=== PATIENT | male | born 1955 | race Two or more races ===

== ENCOUNTER 2022-08-31 07:16 | Inpatient (IN) | payer MEDICARE, MEDICAID ==
[~2022-08-31] VITALS: Ht 172.7 cm; Wt 97.0 kg
[2022-08-31] MEDS ORDERED: ONDANSETRON HCL 4 MG/2 ML VIAL IV ONE (08:30)
[2022-08-31] MEDS ORDERED: HYDROmorphone HCL 2 MG/ML VL/or syr IV ONE (08:30)
[2022-08-31] MEDS ORDERED: ALBUTEROL SULF 2.5 MG/0.5ML(0.5%) NEB SOLN NEB ONE (13:30)
[2022-08-31] MEDS ORDERED: AZITHROMYCIN 500MG/ 250ML 250 ML IV ONE (13:30)
[2022-08-31] MEDS ORDERED: IPRATROPIUM BROM 0.5 MG/2.5ML INH SOL NEB ONE (13:30)
[2022-08-31] MEDS ORDERED: SODIUM CHLORIDE 0.9% 1,000 ML IV ONE (13:30)
[2022-08-31 14:17] LABS: Basophils # (auto) 0 10 ^3/uL (0-0.2); Basophils % (auto) 0.3 % (0.0-2.0); Eosinophils # (auto) 0 10 ^3/uL (0-0.8); Eosinophils % (auto) 0.3 % (0.0-7.0); Hematocrit 39.1 % (41.0-53.0); Hemoglobin 13.4 g/dL (13.5-17.5); Lymphocytes # (auto) 1.6 10 ^3/uL (0.4-5.4); Lymphocytes % (auto) 13.3 % (10.0-50.0); Mean Corpuscular Hemoglobin 30.3 pg (28.0-32.0); Mean Corpuscular Hgb Conc. 34.2 g/dL (32.0-36.0); Mean Corpuscular Volume 88.7 fL (80.0-100.0); Monocytes # (auto) 0.8 10 ^3/uL (0-1.3); Monocytes % (auto) 6.7 % (0.0-12.0); Neutrophils # (auto) 9.6 10 ^3/uL (1.6-8.6); Neutrophils % (auto) 79.4 % (37.0-80.0); Red Blood Cells 4.41 10^6/uL (4.5-5.90); Red Cell Distribution Width 13.5 % (11.8-14.3); White Blood Cell 12.1 10^3/uL (4.4-10.8)
[2022-08-31 14:45] LABS: Albumin 3.9 g/dL (3.4-5.0); BUN/Creatinine Ratio 15.5; Calcium 8.3 mg/dL (8.5-10.1); Magnesium 2.4 mg/dL (1.6-2.6); Total Protein 6.8 g/dL (6.4-8.2)
[2022-08-31 14:50] LABS: Urine Bacteria NONE SEEN /hpf (None Seen); Urine Blood Negative /uL (Negative); Urine WBC <1 /hpf (0 - 3)
[2022-08-31 14:59] LABS: Urine Specific Gravity > 1.050 (1.001-1.035)
[2022-08-31] MEDS ORDERED: NITROGLYCERIN 0.4 MG SL TAB SL PRN (15:45)
[2022-08-31] MEDS ORDERED: DEXTROSE (50%) 50ML SYRG IV PRN (15:45)
[2022-08-31] MEDS ORDERED: MORPHINE SULFATE INJ 2 MG/ml SYRG IV PRN (15:45)
[2022-08-31] MEDS ORDERED: CLOP75TA70 PO (15:58)
[2022-08-31] MEDS ORDERED: MEMA1TAB3 PO (15:58)
[2022-08-31] MEDS ORDERED: SITA100T7 PO (15:58)
[2022-08-31] MEDS ORDERED: ATOR40TA52 PO (15:58)
[2022-08-31] MEDS ORDERED: AMLO-496 PO (15:58)
[2022-08-31] MEDS ORDERED: METF-372 PO (15:58)
[2022-08-31] MEDS ORDERED: SERT-160 PO (15:58)
[2022-08-31] MEDS ORDERED: HYDR25TA87 PO (15:58)
[2022-08-31] MEDS ORDERED: LOSA-39 PO (15:58)
[2022-08-31] MEDS ORDERED: TAMS0.4C36 PO (15:59)
[2022-08-31] MEDS: MORPHINE SULFATE INJ 2 MG/ml SYRG IV PRN ×2 (16:27→20:42)
[2022-08-31] MEDS ORDERED: IOHEXOL 350 MG/ML 100ML IJ ONE (16:27)
[2022-08-31] MEDS ORDERED: cefTRIAXone 1GM/50ML D5W 50 ML IV ONE (16:30)
[2022-08-31] MEDS ORDERED: ALBUTEROL SULF 2.5 MG/0.5ML(0.5%) NEB SOLN NEB PRN (16:30)
[2022-08-31] MEDS ORDERED: FUROSEMIDE 20 MG/2 ML VIAL IV ONE (16:30)
[2022-08-31] MEDS: InsuLIN REG 1unit/0.01ml Soln (100units/ml) SC SCH ×2 (17:34→22:35)
[2022-08-31] MEDS: ACCU-CHEK COMFORT CURVE STRIP VI SCH ×2 (17:36→21:55)
[2022-08-31 17:37] LABS: Cholesterol 92 mg/dL (< 200); HDL Cholesterol 44 mg/dL (40-59); LDL Cholesterol 45 mg/dL (< 100); Triglycerides 87 mg/dL (< 150)
[2022-08-31] MEDS ORDERED: LIDOCAINE 2% JELLY 11ml (GLYDO) ONE (17:58)
[2022-08-31 19:35] VITALS: BP 147/68
[2022-08-31] MEDS: MEMANTINE HCL 5 MG TAB PO SCH (21:45)
[2022-08-31] MEDS: ATORVASTATIN 20 MG TAB PO SCH (21:45)
[2022-08-31] MEDS: HYDROcodone-ACET 5/325MG TAB PO PRN (21:46)
[2022-08-31] MEDS: hydrALAZINE HCL 25 MG TAB PO SCH (21:49)
[2022-08-31 22:35] VITALS: BP 156/65
[2022-08-31 23:22] VITALS: BP 156/65
[2022-09-01] VITALS (16 sets, daily range): BP systolic 130–188; BP diastolic 49–66
[2022-09-01] MEDS ORDERED: CLOP75TA28 PO (00:56)
[2022-09-01] MEDS ORDERED: HYDR12.56 PO (00:58)
[2022-09-01] MEDS: ACCU-CHEK COMFORT CURVE STRIP VI SCH ×4 (06:03→22:00)
[2022-09-01] MEDS: InsuLIN REG 1unit/0.01ml Soln (100units/ml) SC SCH ×4 (06:11→22:00)
[2022-09-01] MEDS: HYDROcodone-ACET 5/325MG TAB PO PRN (06:14)
[2022-09-01 06:34] LABS: Basophils # (auto) 0 10 ^3/uL (0-0.2); Basophils % (auto) 0.3 % (0.0-2.0); Eosinophils # (auto) 0 10 ^3/uL (0-0.8); Eosinophils % (auto) 0.2 % (0.0-7.0); Hematocrit 34.5 % (41.0-53.0); Hemoglobin 12.1 g/dL (13.5-17.5); Lymphocytes # (auto) 0.7 10 ^3/uL (0.4-5.4); Lymphocytes % (auto) 7.3 % (10.0-50.0); Mean Corpuscular Hemoglobin 30.7 pg (28.0-32.0); Mean Corpuscular Hgb Conc. 35.1 g/dL (32.0-36.0); Mean Corpuscular Volume 87.6 fL (80.0-100.0); Monocytes # (auto) 0.8 10 ^3/uL (0-1.3); Monocytes % (auto) 7.9 % (0.0-12.0); Neutrophils # (auto) 8.5 10 ^3/uL (1.6-8.6); Neutrophils % (auto) 84.3 % (37.0-80.0); Red Blood Cells 3.94 10^6/uL (4.5-5.90); Red Cell Distribution Width 13.4 % (11.8-14.3); White Blood Cell 10.1 10^3/uL (4.4-10.8)
[2022-09-01 07:07] LABS: BUN/Creatinine Ratio 21.3; Calcium 8.4 mg/dL (8.5-10.1); Potassium 4.5 mmol/L (3.5-5.1)
[2022-09-01] MEDS: cefTRIAXone 1GM/50ML D5W 50 ML IV SCH (09:33)
[2022-09-01] MEDS: hydrALAZINE HCL 25 MG TAB PO SCH ×3 (09:37→22:00)
[2022-09-01] MEDS: TAMSULOSIN HYDROCHLORIDE 0.4 MG CAP PO SCH (09:37)
[2022-09-01] MEDS: MEMANTINE HCL 5 MG TAB PO SCH ×2 (09:37→22:00)
[2022-09-01] MEDS: LOSARTAN POTASSIUM 50 MG TAB PO SCH (09:37)
[2022-09-01] MEDS: amLODIPine BESYLATE 5 MG TAB PO SCH (09:38)
[2022-09-01] MEDS: ENOXAPARIN SOD 40 MG/0.4 ML SYRINGE SC SCH (09:38)
[2022-09-01] MEDS: FUROSEMIDE 20 MG/2 ML VIAL IV SCH (09:38)
[2022-09-01] MEDS ORDERED: PATIENTS OWN MEDICATION (Sitagliptin Phosphate (Januvia) 1 TAB) PO SCH (10:00)
[2022-09-01] MEDS ORDERED: LIDOCAINE 5% TOPICAL PATCH TOP ONE (11:00)
[2022-09-01] MEDS: AZITHROMYCIN 500MG/ 250ML 250 ML IV SCH (11:39)
[2022-09-01] MEDS: hydrALAZINE HCL 20 MG/ML VL IV PRN (12:21)
[2022-09-01] MEDS: ALBUTEROL SULF 2.5 MG/0.5ML(0.5%) NEB SOLN NEB SCH ×2 (12:26→19:07)
[2022-09-01] MEDS: IPRATROPIUM BROM 0.5 MG/2.5ML INH SOL NEB SCH ×2 (12:26→19:07)
[2022-09-01] MEDS: MORPHINE SULFATE INJ 2 MG/ml SYRG IV PRN ×3 (12:50→22:12)
[2022-09-01] MEDS: ACETAMINOPHEN 325 MG TAB PO PRN (15:31)
[2022-09-01] MEDS: ATORVASTATIN 20 MG TAB PO SCH (22:00)
[2022-09-01] MEDS ORDERED: ETOMIDATE (2MG/ML) 20ML VIAL IV ONE (23:11)
[2022-09-01] MEDS ORDERED: SUCCINYLCHOLINE CHLORIDE 20 MG/ML 10ML VIAL IV ONE (23:11)
[2022-09-01] MEDS ORDERED: HYDROmorphone HCL 2 MG/ML VL/or syr ONE (23:34)
[2022-09-02] VITALS (43 sets, daily range): BP systolic 119–171; BP diastolic 36–70
[2022-09-02] MEDS ORDERED: HYDROmorphone HCL 2 MG/ML VL/or syr IV PRN ×2 (02:00→06:00)
[2022-09-02] MEDS ORDERED: LORazepam 2MG/ML-1ML VIAL IV ONE (02:00)
[2022-09-02] MEDS: MORPHINE SULFATE INJ 2 MG/ml SYRG IV PRN (02:36)
[2022-09-02] MEDS: ACETAMINOPHEN 325 MG TAB PO PRN (05:20)
[2022-09-02 05:42] LABS: Basophils # (auto) 0 10 ^3/uL (0-0.2); Basophils % (auto) 0.1 % (0.0-2.0); Eosinophils # (auto) 0 10 ^3/uL (0-0.8); Hematocrit 33.1 % (41.0-53.0); Hemoglobin 11.4 g/dL (13.5-17.5); Lymphocytes # (auto) 0.5 10 ^3/uL (0.4-5.4); Lymphocytes % (auto) 3.6 % (10.0-50.0); Mean Corpuscular Hemoglobin 30.5 pg (28.0-32.0); Mean Corpuscular Hgb Conc. 34.5 g/dL (32.0-36.0); Mean Corpuscular Volume 88.5 fL (80.0-100.0); Monocytes # (auto) 0.8 10 ^3/uL (0-1.3); Monocytes % (auto) 5.8 % (0.0-12.0); Neutrophils # (auto) 12.5 10 ^3/uL (1.6-8.6); Neutrophils % (auto) 90.5 % (37.0-80.0); Red Blood Cells 3.74 10^6/uL (4.5-5.90); Red Cell Distribution Width 13.4 % (11.8-14.3); White Blood Cell 13.8 10^3/uL (4.4-10.8)
[2022-09-02] MEDS: ALBUTEROL SULF 2.5 MG/0.5ML(0.5%) NEB SOLN NEB SCH ×3 (06:35→18:39)
[2022-09-02] MEDS: IPRATROPIUM BROM 0.5 MG/2.5ML INH SOL NEB SCH ×3 (06:35→18:39)
[2022-09-02 06:40] LABS: BUN/Creatinine Ratio 23.2; Calcium 8.7 mg/dL (8.5-10.1)
[2022-09-02] MEDS: InsuLIN REG 1unit/0.01ml Soln (100units/ml) SC SCH ×4 (07:00→22:00)
[2022-09-02] MEDS: ACCU-CHEK COMFORT CURVE STRIP VI SCH ×4 (07:00→22:00)
[2022-09-02] MEDS: cefTRIAXone 1GM/50ML D5W 50 ML IV SCH (08:55)
[2022-09-02] MEDS: ENOXAPARIN SOD 40 MG/0.4 ML SYRINGE SC SCH (09:42)
[2022-09-02] MEDS: AZITHROMYCIN 500MG/ 250ML 250 ML IV SCH (09:43)
[2022-09-02] MEDS: LIDOCAINE 5% TOPICAL PATCH TOP SCH (09:43)
[2022-09-02] MEDS: FUROSEMIDE 20 MG/2 ML VIAL IV SCH (09:44)
[2022-09-02] MEDS: amLODIPine BESYLATE 5 MG TAB PO SCH ×2 (09:46→10:00)
[2022-09-02] MEDS: MEMANTINE HCL 5 MG TAB PO SCH (09:46)
[2022-09-02] MEDS: TAMSULOSIN HYDROCHLORIDE 0.4 MG CAP PO SCH (09:46)
[2022-09-02] MEDS: LOSARTAN POTASSIUM 50 MG TAB PO SCH ×2 (09:47→10:00)
[2022-09-02] MEDS: hydrALAZINE HCL 25 MG TAB PO SCH (10:00)
[2022-09-02] MEDS ORDERED: PIPERACILLIN-TAZOB 3.375GM 100 ML IV ONE (12:00)
[2022-09-02] MEDS: HYDROmorphone HCL 2 MG/ML VL/or syr IV PRN (20:05)
[2022-09-02] MEDS: PIPERACILLIN-TAZOB 3.375GM 100 ML IV SCH (20:16)
[2022-09-03] VITALS (49 sets, daily range): BP systolic 102–178; BP diastolic 0–71
[2022-09-03] MEDS: HYDROmorphone HCL 2 MG/ML VL/or syr IV PRN ×3 (00:40→11:38)
[2022-09-03 01:38] LABS: Urine Bacteria NONE SEEN /hpf (None Seen); Urine Blood 3+ /uL (Negative); Urine Specific Gravity 1.031 (1.001-1.035); Urine WBC 40 /hpf (0 - 3); Urine WBC Clumps PRESENT /hpf (None Seen)
[2022-09-03] MEDS: PIPERACILLIN-TAZOB 3.375GM 100 ML IV SCH ×3 (05:00→20:31)
[2022-09-03 05:12] LABS: Basophils # (auto) 0 10 ^3/uL (0-0.2); Basophils % (auto) 0.1 % (0.0-2.0); Eosinophils # (auto) 0 10 ^3/uL (0-0.8); Eosinophils % (auto) 0.1 % (0.0-7.0); Hematocrit 32.6 % (41.0-53.0); Hemoglobin 11.2 g/dL (13.5-17.5); Lymphocytes # (auto) 0.5 10 ^3/uL (0.4-5.4); Lymphocytes % (auto) 4.3 % (10.0-50.0); Mean Corpuscular Hemoglobin 30.4 pg (28.0-32.0); Mean Corpuscular Hgb Conc. 34.4 g/dL (32.0-36.0); Mean Corpuscular Volume 88.4 fL (80.0-100.0); Monocytes # (auto) 0.7 10 ^3/uL (0-1.3); Monocytes % (auto) 6.1 % (0.0-12.0); Neutrophils # (auto) 10.9 10 ^3/uL (1.6-8.6); Neutrophils % (auto) 89.4 % (37.0-80.0); Red Blood Cells 3.69 10^6/uL (4.5-5.90); Red Cell Distribution Width 13.3 % (11.8-14.3); White Blood Cell 12.2 10^3/uL (4.4-10.8)
[2022-09-03 05:36] LABS: Potassium 4.1 mmol/L (3.5-5.1)
[2022-09-03 05:37] LABS: Albumin 2.6 g/dL (3.4-5.0); BUN/Creatinine Ratio 30.8; Calcium 8.8 mg/dL (8.5-10.1)
[2022-09-03 05:40] LABS: Bilirubin, Total 0.8 mg/dL (0.2-1.0); Total Protein 5.9 g/dL (6.4-8.2)
[2022-09-03] MEDS: ALBUTEROL SULF 2.5 MG/0.5ML(0.5%) NEB SOLN NEB SCH ×3 (05:56→20:12)
[2022-09-03] MEDS: IPRATROPIUM BROM 0.5 MG/2.5ML INH SOL NEB SCH ×3 (05:56→20:12)
[2022-09-03] MEDS: ACCU-CHEK COMFORT CURVE STRIP VI SCH ×4 (07:00→22:29)
[2022-09-03] MEDS: InsuLIN REG 1unit/0.01ml Soln (100units/ml) SC SCH ×4 (07:00→22:00)
[2022-09-03] MEDS: LIDOCAINE 5% TOPICAL PATCH TOP SCH (09:55)
[2022-09-03] MEDS: FUROSEMIDE 20 MG/2 ML VIAL IV SCH (09:56)
[2022-09-03] MEDS: ENOXAPARIN SOD 40 MG/0.4 ML SYRINGE SC SCH (09:56)
[2022-09-03] MEDS: MORPHINE SULFATE INJ 2 MG/ml SYRG IV PRN (10:10)
[2022-09-03] MEDS ORDERED: FUROSEMIDE 40 MG/4 ML VIAL ONE (10:29)
[2022-09-03] MEDS ORDERED: FUROSEMIDE 40 MG/4 ML VIAL IV ONE (10:30)
[2022-09-03] MEDS ORDERED: NITROGLYCERIN 2% OINT 1GM PKG TD ONE (11:30)
[2022-09-03] MEDS ORDERED: BUMETANIDE 2.5mg/10ml (0.25 mg/ml) INJ IV ONE (14:15)
[2022-09-03] MEDS ORDERED: VANCOMYCIN PER PHARMACY 0 MG IV SCH (14:30)
[2022-09-03] MEDS ORDERED: ETOMIDATE (2MG/ML) 20ML VIAL IV ONE ×2 (15:01→15:15)
[2022-09-03] MEDS ORDERED: PROPOFOL 100 ML IV ONE (15:01)
[2022-09-03] MEDS ORDERED: ROCURONIUM 10MG/ML 10ML VIAL IV ONE ×2 (15:01→15:15)
[2022-09-03] MEDS ORDERED: fentaNYL Drip 2500mCg/250mlNS 250 ML IV ONE (15:01)
[2022-09-03] MEDS ORDERED: PANTOPRAZOLE 40 MG/10 ML VIAL INJ IV ONE (15:30)
[2022-09-03] MEDS: MIDAZOLAM DRIP 50 mg/50mL 50 ML IV SCH (15:30)
[2022-09-03] MEDS: PROPOFOL 100 ML IV SCH (15:53)
[2022-09-03] MEDS: fentaNYL Drip 2500mCg/250mlNS 250 ML IV SCH (15:54)
[2022-09-03 17:41] LABS: BUN/Creatinine Ratio 31.4; Calcium 9.1 mg/dL (8.5-10.1); Potassium 3.5 mmol/L (3.5-5.1)
[2022-09-03] MEDS: VANCOMYCIN 1GM/250ML 250 ML IV SCH (19:18)
[2022-09-03] MEDS: SODIUM CHLORIDE 0.9% 1,000 ML IV SCH (19:21)
[2022-09-03 20:18] LABS: INR 1.03 (0.9-1.15); Partial Thromboplastin Time 31.4 sec (24.6-33.4)
[2022-09-03] MEDS ORDERED: FUROSEMIDE 20 MG/2 ML VIAL IV SCH (22:00)
[2022-09-04] VITALS (57 sets, daily range): BP systolic 86–161; BP diastolic 42–69
[2022-09-04] MEDS: ALBUTEROL SULF 2.5 MG/0.5ML(0.5%) NEB SOLN NEB SCH ×4 (00:19→19:16)
[2022-09-04] MEDS: IPRATROPIUM BROM 0.5 MG/2.5ML INH SOL NEB SCH ×4 (00:19→19:16)
[2022-09-04] MEDS: PROPOFOL 100 ML IV SCH ×2 (00:36→16:08)
[2022-09-04] MEDS: VANCOMYCIN 1GM/250ML 250 ML IV SCH ×3 (04:05→21:44)
[2022-09-04] MEDS: PIPERACILLIN-TAZOB 3.375GM 100 ML IV SCH (04:05)
[2022-09-04] MEDS: ACCU-CHEK COMFORT CURVE STRIP VI SCH ×4 (06:30→21:49)
[2022-09-04] MEDS: InsuLIN REG 1unit/0.01ml Soln (100units/ml) SC SCH ×4 (06:45→21:54)
[2022-09-04] MEDS ORDERED: BENZOCAINE (DENTAL) 20 % SPRAY 60ML MT ONE (07:44)
[2022-09-04] MEDS ORDERED: EPINEPHrine HCL 1 MG/1 ML AMP ONE (07:44)
[2022-09-04] MEDS ORDERED: MIDAZOLAM HCL 5 MG/ML-1ML VIAL ONE (07:44)
[2022-09-04] MEDS ORDERED: fentaNYL CITRATE 100 MCG/2 ML VL ONE (07:45)
[2022-09-04] MEDS ORDERED: LIDOCAINE 2% JELLY 11ml (GLYDO) ONE (07:45)
[2022-09-04] MEDS ORDERED: SODIUM CHLORIDE LOCK 0 ML ONE (07:46)
[2022-09-04 08:00] LABS: BUN/Creatinine Ratio 36.6; Calcium 8.7 mg/dL (8.5-10.1); Magnesium 2.7 mg/dL (1.6-2.6); Potassium 3.6 mmol/L (3.5-5.1)
[2022-09-04] MEDS ORDERED: ACETYLCYSTEINE 20%(200MG/ML) SOL 4ML ONE (08:03)
[2022-09-04] MEDS ORDERED: ACETYLCYSTEINE 20%(200MG/ML) SOL 4ML NEB ONE (08:15)
[2022-09-04] MEDS: SODIUM CHLORIDE 0.9% 1,000 ML IV SCH (10:10)
[2022-09-04] MEDS: PANTOPRAZOLE 40 MG/10 ML VIAL INJ IV SCH (11:04)
[2022-09-04] MEDS: ENOXAPARIN SOD 40 MG/0.4 ML SYRINGE SC SCH (11:05)
[2022-09-04] MEDS ORDERED: CEFEPIME 2 GM in SODIUM CHL 0.9% 50 ML IV SCH (12:00)
[2022-09-04] MEDS: fentaNYL Drip 2500mCg/250mlNS 250 ML IV SCH (12:53)
[2022-09-04] MEDS ORDERED: LIDOCAINE 1% (LOCAL ANESTH.) PF 5ml SDV ID ONE (14:00)
[2022-09-04] MEDS: MIDAZOLAM DRIP 50 mg/50mL 50 ML IV SCH (15:30)
[2022-09-04] MEDS: ACETAMINOPHEN 325 MG TAB PO PRN (17:11)
[2022-09-04] MEDS: CEFEPIME 2 GM in SODIUM CHL 0.9% 50 ML IV SCH (17:15)
[2022-09-04] MEDS: SODIUM CHLOR 0.9% PF (SALINE LOCK) 10ML VIAL/SYR IV SCH (21:44)
[2022-09-05] VITALS (57 sets, daily range): BP systolic 89–130; BP diastolic 34–79
[2022-09-05] MEDS: IPRATROPIUM BROM 0.5 MG/2.5ML INH SOL NEB SCH ×4 (00:13→18:32)
[2022-09-05] MEDS: ALBUTEROL SULF 2.5 MG/0.5ML(0.5%) NEB SOLN NEB SCH ×4 (00:13→18:32)
[2022-09-05] MEDS: fentaNYL Drip 2500mCg/250mlNS 250 ML IV SCH ×2 (00:20→12:08)
[2022-09-05] MEDS: CEFEPIME 2 GM in SODIUM CHL 0.9% 50 ML IV SCH ×3 (00:38→17:01)
[2022-09-05] MEDS: SODIUM CHLORIDE 0.9% 1,000 ML IV SCH ×2 (02:50→19:30)
[2022-09-05 04:58] LABS: Basophils # (auto) 0 10 ^3/uL (0-0.2); Basophils % (auto) 0.3 % (0.0-2.0); Eosinophils # (auto) 0.2 10 ^3/uL (0-0.8); Eosinophils % (auto) 2.8 % (0.0-7.0); Hematocrit 29.2 % (41.0-53.0); Hemoglobin 9.9 g/dL (13.5-17.5); Lymphocytes # (auto) 0.8 10 ^3/uL (0.4-5.4); Lymphocytes % (auto) 10.2 % (10.0-50.0); Mean Corpuscular Hemoglobin 30.6 pg (28.0-32.0); Mean Corpuscular Hgb Conc. 33.9 g/dL (32.0-36.0); Mean Corpuscular Volume 90.4 fL (80.0-100.0); Monocytes # (auto) 0.6 10 ^3/uL (0-1.3); Monocytes % (auto) 8.1 % (0.0-12.0); Neutrophils # (auto) 6.2 10 ^3/uL (1.6-8.6); Neutrophils % (auto) 78.6 % (37.0-80.0); Red Blood Cells 3.23 10^6/uL (4.5-5.90); Red Cell Distribution Width 13.8 % (11.8-14.3); White Blood Cell 7.9 10^3/uL (4.4-10.8)
[2022-09-05 05:15] LABS: Albumin 2.4 g/dL (3.4-5.0); Calcium 8.4 mg/dL (8.5-10.1); Potassium 3.6 mmol/L (3.5-5.1)
[2022-09-05 05:19] LABS: BUN/Creatinine Ratio 40.2; Bilirubin, Total 1.3 mg/dL (0.2-1.0); Total Protein 5.9 g/dL (6.4-8.2)
[2022-09-05] MEDS: PROPOFOL 100 ML IV SCH ×2 (05:24→11:52)
[2022-09-05] MEDS: ACCU-CHEK COMFORT CURVE STRIP VI SCH ×4 (06:39→21:52)
[2022-09-05] MEDS: InsuLIN REG 1unit/0.01ml Soln (100units/ml) SC SCH ×4 (06:42→21:52)
[2022-09-05] MEDS: SODIUM CHLOR 0.9% PF (SALINE LOCK) 10ML VIAL/SYR IV SCH ×2 (10:00→21:52)
[2022-09-05] MEDS ORDERED: Glucerna 1.2 Cal 1Liter BOTTLE GT SCH (11:15)
[2022-09-05] MEDS: ENOXAPARIN SOD 40 MG/0.4 ML SYRINGE SC SCH (11:52)
[2022-09-05] MEDS: FREE WATER GT SCH ×3 (11:53→23:35)
[2022-09-05] MEDS: PANTOPRAZOLE 40 MG/10 ML VIAL INJ IV SCH (11:53)
[2022-09-05] MEDS: MIDAZOLAM DRIP 50 mg/50mL 50 ML IV SCH (15:16)
[2022-09-05] MEDS: LINEZOLID 600MG/300ML 300 ML IV SCH (21:52)
[2022-09-06] VITALS (58 sets, daily range): BP systolic 111–129; BP diastolic 39–51
[2022-09-06] MEDS: ALBUTEROL SULF 2.5 MG/0.5ML(0.5%) NEB SOLN NEB SCH ×4 (00:01→18:15)
[2022-09-06] MEDS: IPRATROPIUM BROM 0.5 MG/2.5ML INH SOL NEB SCH ×4 (00:01→18:15)
[2022-09-06] MEDS: fentaNYL Drip 2500mCg/250mlNS 250 ML IV SCH ×2 (01:00→12:52)
[2022-09-06] MEDS: CEFEPIME 2 GM in SODIUM CHL 0.9% 50 ML IV SCH ×3 (01:00→17:00)
[2022-09-06] MEDS: PROPOFOL 100 ML IV SCH (01:11)
[2022-09-06 04:02] LABS: Basophils # (auto) 0 10 ^3/uL (0-0.2); Basophils % (auto) 0.4 % (0.0-2.0); Eosinophils # (auto) 0.4 10 ^3/uL (0-0.8); Eosinophils % (auto) 5.5 % (0.0-7.0); Hematocrit 28.8 % (41.0-53.0); Hemoglobin 9.3 g/dL (13.5-17.5); Lymphocytes # (auto) 0.7 10 ^3/uL (0.4-5.4); Lymphocytes % (auto) 9.8 % (10.0-50.0); Mean Corpuscular Hemoglobin 29.7 pg (28.0-32.0); Mean Corpuscular Hgb Conc. 32.5 g/dL (32.0-36.0); Mean Corpuscular Volume 91.3 fL (80.0-100.0); Monocytes # (auto) 0.7 10 ^3/uL (0-1.3); Monocytes % (auto) 8.8 % (0.0-12.0); Neutrophils # (auto) 5.7 10 ^3/uL (1.6-8.6); Neutrophils % (auto) 75.5 % (37.0-80.0); Red Blood Cells 3.15 10^6/uL (4.5-5.90); Red Cell Distribution Width 13.8 % (11.8-14.3); White Blood Cell 7.5 10^3/uL (4.4-10.8)
[2022-09-06 04:14] LABS: Potassium 3.7 mmol/L (3.5-5.1)
[2022-09-06 04:16] LABS: BUN/Creatinine Ratio 45.6; Bilirubin, Total 1.7 mg/dL (0.2-1.0); Total Protein 6.4 g/dL (6.4-8.2)
[2022-09-06] MEDS: FREE WATER GT SCH ×3 (06:00→18:00)
[2022-09-06] MEDS: InsuLIN REG 1unit/0.01ml Soln (100units/ml) SC SCH ×4 (06:38→21:47)
[2022-09-06] MEDS: ACCU-CHEK COMFORT CURVE STRIP VI SCH ×4 (06:39→21:49)
[2022-09-06] MEDS: ENOXAPARIN SOD 40 MG/0.4 ML SYRINGE SC SCH (09:24)
[2022-09-06] MEDS: PANTOPRAZOLE 40 MG/10 ML VIAL INJ IV SCH (09:24)
[2022-09-06] MEDS: SODIUM CHLOR 0.9% PF (SALINE LOCK) 10ML VIAL/SYR IV SCH ×2 (09:24→21:42)
[2022-09-06] MEDS: LINEZOLID 600MG/300ML 300 ML IV SCH ×2 (09:24→21:42)
[2022-09-06] MEDS: SODIUM CHLORIDE 0.9% 1,000 ML IV SCH (12:12)
[2022-09-06] MEDS: MIDAZOLAM DRIP 50 mg/50mL 50 ML IV SCH (15:30)
[2022-09-07] VITALS (66 sets, daily range): BP systolic 102–169; BP diastolic 34–56
[2022-09-07] MEDS: ALBUTEROL SULF 2.5 MG/0.5ML(0.5%) NEB SOLN NEB SCH ×4 (00:22→20:09)
[2022-09-07] MEDS: IPRATROPIUM BROM 0.5 MG/2.5ML INH SOL NEB SCH ×4 (00:23→20:09)
[2022-09-07] MEDS: CEFEPIME 2 GM in SODIUM CHL 0.9% 50 ML IV SCH ×3 (01:00→17:00)
[2022-09-07] MEDS: fentaNYL Drip 2500mCg/250mlNS 250 ML IV SCH ×2 (03:30→15:17)
[2022-09-07] MEDS: SODIUM CHLORIDE 0.9% 1,000 ML IV SCH ×2 (04:50→21:30)
[2022-09-07] MEDS: FREE WATER GT SCH ×4 (06:00→18:00)
[2022-09-07] MEDS: InsuLIN REG 1unit/0.01ml Soln (100units/ml) SC SCH ×4 (06:48→22:00)
[2022-09-07] MEDS: ACCU-CHEK COMFORT CURVE STRIP VI SCH ×4 (06:48→22:00)
[2022-09-07 08:18] LABS: Basophils # (auto) 0 10 ^3/uL (0-0.2); Basophils % (auto) 0.4 % (0.0-2.0); Eosinophils # (auto) 0.4 10 ^3/uL (0-0.8); Eosinophils % (auto) 5.5 % (0.0-7.0); Hemoglobin 9.4 g/dL (13.5-17.5); Lymphocytes # (auto) 0.6 10 ^3/uL (0.4-5.4); Lymphocytes % (auto) 7.7 % (10.0-50.0); Mean Corpuscular Hemoglobin 30.2 pg (28.0-32.0); Mean Corpuscular Hgb Conc. 33.5 g/dL (32.0-36.0); Mean Corpuscular Volume 89.9 fL (80.0-100.0); Monocytes # (auto) 0.7 10 ^3/uL (0-1.3); Monocytes % (auto) 8.7 % (0.0-12.0); Neutrophils # (auto) 6.1 10 ^3/uL (1.6-8.6); Neutrophils % (auto) 77.7 % (37.0-80.0); Nucleated Red Blood Cells % 0.1 %; Red Blood Cells 3.11 10^6/uL (4.5-5.90); Red Cell Distribution Width 13.5 % (11.8-14.3); White Blood Cell 7.9 10^3/uL (4.4-10.8)
[2022-09-07 08:32] LABS: Calcium 9.2 mg/dL (8.5-10.1); Potassium 3.7 mmol/L (3.5-5.1)
[2022-09-07 08:34] LABS: BUN/Creatinine Ratio 50.3
[2022-09-07] MEDS: SODIUM CHLOR 0.9% PF (SALINE LOCK) 10ML VIAL/SYR IV SCH ×2 (10:00→22:00)
[2022-09-07] MEDS: ENOXAPARIN SOD 40 MG/0.4 ML SYRINGE SC SCH (10:33)
[2022-09-07] MEDS: PANTOPRAZOLE 40 MG/10 ML VIAL INJ IV SCH (10:33)
[2022-09-07] MEDS: LINEZOLID 600MG/300ML 300 ML IV SCH ×2 (10:33→22:07)
[2022-09-07] MEDS: DOPamine 1600MCG/ML D5W 250 ML IV SCH (13:00)
[2022-09-07] MEDS: PROPOFOL 100 ML IV SCH (15:15)
[2022-09-07] MEDS: MIDAZOLAM DRIP 50 mg/50mL 50 ML IV SCH (15:30)
[2022-09-07] MEDS ORDERED: METOCLOPRAMIDE HCL 5MG/ml INJ 2ml VIAL IV ONE (22:00)
[2022-09-07] MEDS: METOCLOPRAMIDE HCL 5MG/ml INJ 2ml VIAL IV SCH (22:07)
[2022-09-08] VITALS (107 sets, daily range): BP systolic 112–170; BP diastolic 42–61
[2022-09-08] MEDS: ALBUTEROL SULF 2.5 MG/0.5ML(0.5%) NEB SOLN NEB SCH ×4 (00:13→18:22)
[2022-09-08] MEDS: IPRATROPIUM BROM 0.5 MG/2.5ML INH SOL NEB SCH ×4 (00:13→18:23)
[2022-09-08] MEDS: PROPOFOL 100 ML IV SCH ×3 (00:30→13:20)
[2022-09-08] MEDS: CEFEPIME 2 GM in SODIUM CHL 0.9% 50 ML IV SCH ×3 (01:00→21:38)
[2022-09-08] MEDS: fentaNYL Drip 2500mCg/250mlNS 250 ML IV SCH ×2 (05:14→19:04)
[2022-09-08] MEDS: FREE WATER GT SCH ×2 (06:00)
[2022-09-08] MEDS: InsuLIN REG 1unit/0.01ml Soln (100units/ml) SC SCH ×4 (06:37→22:00)
[2022-09-08] MEDS: ACCU-CHEK COMFORT CURVE STRIP VI SCH ×4 (06:38→22:00)
[2022-09-08 07:01] LABS: Anion Gap 8 (5-15); Blood Urea Nitrogen 68 mg/dL (7-18); Calcium 8.6 mg/dL (8.5-10.1); Carbon Dioxide 22 mmol/L (21-32); Chloride 107 mmol/L (98-107); Glucose 264 mg/dL (74-106); Potassium 3.8 mmol/L (3.5-5.1); Sodium 137 mmol/L (136-145)
[2022-09-08 07:02] LABS: BUN/Creatinine Ratio 48.9; GFR African American 66 mL/min; GFR Non-African American 54 mL/min
[2022-09-08] MEDS: SODIUM CHLORIDE 0.9% 1,000 ML IV SCH (08:28)
[2022-09-08] MEDS: PANTOPRAZOLE 40 MG/10 ML VIAL INJ IV SCH (10:21)
[2022-09-08] MEDS: METOCLOPRAMIDE HCL 5MG/ml INJ 2ml VIAL IV SCH ×3 (10:21→21:38)
[2022-09-08] MEDS: LINEZOLID 600MG/300ML 300 ML IV SCH ×2 (10:21→21:37)
[2022-09-08] MEDS: ENOXAPARIN SOD 40 MG/0.4 ML SYRINGE SC SCH (10:21)
[2022-09-08] MEDS: SODIUM CHLOR 0.9% PF (SALINE LOCK) 10ML VIAL/SYR IV SCH ×2 (10:29→21:38)
[2022-09-08] MEDS ORDERED: FUROSEMIDE 40 MG/4 ML VIAL IV SCH (10:30)
[2022-09-08] MEDS ORDERED: LACTULOSE 20Gm/30ML SOLN PO ONE (13:00)
[2022-09-08] MEDS: hydrALAZINE HCL 20 MG/ML VL IV PRN ×2 (13:07→23:10)
[2022-09-08] MEDS: DOPamine 1600MCG/ML D5W 250 ML IV SCH (13:07)
[2022-09-08 14:01] LABS: Protein, Urine 84.9 mg/dL (0.0-11.9)
[2022-09-08] MEDS: MIDAZOLAM DRIP 50 mg/50mL 50 ML IV SCH (15:30)
[2022-09-08 17:20] LABS: Protein, Urine 104.8 mg/dL (0.0-11.9)
[2022-09-08] MEDS: LACTULOSE 20Gm/30ML SOLN PO SCH (17:47)
[2022-09-08 21:14] LABS: Urine Amorphous Crystal FEW /hpf (None Seen); Urine Bacteria FEW /hpf (None Seen); Urine Blood 3+ /uL (Negative); Urine Mucus FEW (None Seen); Urine Specific Gravity 1.017 (1.001-1.035); Urine WBC 41 /hpf (0 - 3)
[2022-09-09] VITALS (103 sets, daily range): BP systolic 112–168; BP diastolic 31–103
[2022-09-09] MEDS: LACTULOSE 20Gm/30ML SOLN PO SCH ×4 (01:11→17:56)
[2022-09-09 04:06] LABS: Albumin 1.9 g/dL (3.4-5.0); BUN/Creatinine Ratio 45.1; Calcium 8.8 mg/dL (8.5-10.1)
[2022-09-09 04:09] LABS: Bilirubin, Total 1.1 mg/dL (0.2-1.0); Total Protein 6.4 g/dL (6.4-8.2)
[2022-09-09 04:18] LABS: Hemoglobin 10.3 g/dL (13.5-17.5); Mean Corpuscular Hemoglobin 30.2 pg (28.0-32.0); Mean Corpuscular Hgb Conc. 34.2 g/dL (32.0-36.0); Mean Corpuscular Volume 88.3 fL (80.0-100.0); Red Blood Cells 3.39 10^6/uL (4.5-5.90); Red Cell Distribution Width 13.4 % (11.8-14.3)
[2022-09-09 04:27] LABS: Basophils % (manual) 0 (0.0-2.0); Blast Cells 0; Promyelocytes % 0; Reactive Lymphocytes 0
[2022-09-09] MEDS: METOCLOPRAMIDE HCL 5MG/ml INJ 2ml VIAL IV SCH ×3 (06:00→22:00)
[2022-09-09] MEDS: CEFEPIME 2 GM in SODIUM CHL 0.9% 50 ML IV SCH ×3 (06:00→22:00)
[2022-09-09] MEDS: ALBUTEROL SULF 2.5 MG/0.5ML(0.5%) NEB SOLN NEB SCH ×4 (06:35→18:38)
[2022-09-09] MEDS: IPRATROPIUM BROM 0.5 MG/2.5ML INH SOL NEB SCH ×4 (06:35→18:38)
[2022-09-09] MEDS: InsuLIN REG 1unit/0.01ml Soln (100units/ml) SC SCH ×4 (06:47→22:00)
[2022-09-09] MEDS: SODIUM CHLORIDE 0.9% 1,000 ML IV SCH (06:47)
[2022-09-09] MEDS: ACCU-CHEK COMFORT CURVE STRIP VI SCH ×4 (06:57→22:00)
[2022-09-09] MEDS: PROPOFOL 100 ML IV SCH ×4 (08:42→23:50)
[2022-09-09] MEDS: LINEZOLID 600MG/300ML 300 ML IV SCH ×2 (10:21→22:00)
[2022-09-09] MEDS: ENOXAPARIN SOD 40 MG/0.4 ML SYRINGE SC SCH (10:21)
[2022-09-09] MEDS: PANTOPRAZOLE 40 MG/10 ML VIAL INJ IV SCH (10:22)
[2022-09-09] MEDS: SODIUM CHLOR 0.9% PF (SALINE LOCK) 10ML VIAL/SYR IV SCH ×2 (10:22→22:00)
[2022-09-09 10:43] LABS: Band Neutrophils % (manual) 6; Eosinophils % (manual) 6 (0-7); Lymphocytes % (manual) 12 (10.0-50.0); Metamyelocytes % 2; Monocytes % (manual) 9 (0-12); Myelocytes % 1
[2022-09-09] MEDS: DOPamine 1600MCG/ML D5W 250 ML IV SCH (12:56)
[2022-09-09] MEDS: MIDAZOLAM DRIP 50 mg/50mL 50 ML IV SCH (15:30)
[2022-09-09] MEDS: hydrALAZINE HCL 20 MG/ML VL IV PRN (23:49)
[2022-09-10] VITALS (106 sets, daily range): BP systolic 125–182; BP diastolic 40–115
[2022-09-10] MEDS: LACTULOSE 20Gm/30ML SOLN PO SCH ×4 (00:12→18:00)
[2022-09-10] MEDS: IPRATROPIUM BROM 0.5 MG/2.5ML INH SOL NEB SCH ×4 (00:30→18:23)
[2022-09-10] MEDS: ALBUTEROL SULF 2.5 MG/0.5ML(0.5%) NEB SOLN NEB SCH ×4 (00:30→18:24)
[2022-09-10] MEDS: PROPOFOL 100 ML IV SCH ×2 (04:10→08:32)
[2022-09-10 05:15] LABS: Calcium 8.9 mg/dL (8.5-10.1)
[2022-09-10 05:17] LABS: BUN/Creatinine Ratio 40.8
[2022-09-10 05:30] LABS: Bilirubin, Total 1.1 mg/dL (0.2-1.0); Phosphorus 2.3 mg/dL (2.5-4.90); Total Protein 6.3 g/dL (6.4-8.2)
[2022-09-10] MEDS: CEFEPIME 2 GM in SODIUM CHL 0.9% 50 ML IV SCH ×2 (05:30→15:15)
[2022-09-10] MEDS: METOCLOPRAMIDE HCL 5MG/ml INJ 2ml VIAL IV SCH ×3 (05:30→21:42)
[2022-09-10] MEDS: InsuLIN REG 1unit/0.01ml Soln (100units/ml) SC SCH ×4 (06:30→22:04)
[2022-09-10] MEDS: ACCU-CHEK COMFORT CURVE STRIP VI SCH ×4 (06:33→21:43)
[2022-09-10] MEDS: SODIUM CHLOR 0.9% PF (SALINE LOCK) 10ML VIAL/SYR IV SCH ×2 (08:06→21:42)
[2022-09-10] MEDS: ENOXAPARIN SOD 40 MG/0.4 ML SYRINGE SC SCH (08:31)
[2022-09-10] MEDS: PANTOPRAZOLE 40 MG/10 ML VIAL INJ IV SCH (08:31)
[2022-09-10] MEDS: fentaNYL Drip 2500mCg/250mlNS 250 ML IV SCH (08:48)
[2022-09-10] MEDS: LINEZOLID 600MG/300ML 300 ML IV SCH ×2 (08:48→21:42)
[2022-09-10] MEDS ORDERED: FUROSEMIDE 40 MG/4 ML VIAL IV ONE (10:30)
[2022-09-10] MEDS: MIDAZOLAM DRIP 50 mg/50mL 50 ML IV SCH (13:28)
[2022-09-10] MEDS: DOPamine 1600MCG/ML D5W 250 ML IV SCH (22:03)
[2022-09-10] MEDS: hydrALAZINE HCL 20 MG/ML VL IV PRN (22:40)
[2022-09-11] VITALS (98 sets, daily range): BP systolic 135–202; BP diastolic 49–84
[2022-09-11] MEDS: IPRATROPIUM BROM 0.5 MG/2.5ML INH SOL NEB SCH ×4 (00:02→18:51)
[2022-09-11] MEDS: ALBUTEROL SULF 2.5 MG/0.5ML(0.5%) NEB SOLN NEB SCH ×4 (00:02→18:51)
[2022-09-11] MEDS: CEFEPIME 2 GM in SODIUM CHL 0.9% 50 ML IV SCH ×3 (00:02→14:00)
[2022-09-11] MEDS: LACTULOSE 20Gm/30ML SOLN PO SCH ×2 (00:04→06:31)
[2022-09-11] MEDS: PROPOFOL 100 ML IV SCH ×2 (00:49→04:27)
[2022-09-11] MEDS: fentaNYL Drip 2500mCg/250mlNS 250 ML IV SCH (02:20)
[2022-09-11 05:11] LABS: Hematocrit 32.2 % (41.0-53.0); Hemoglobin 10.6 g/dL (13.5-17.5); Mean Corpuscular Hemoglobin 29.4 pg (28.0-32.0); Mean Corpuscular Hgb Conc. 32.9 g/dL (32.0-36.0); Mean Corpuscular Volume 89.4 fL (80.0-100.0); Red Cell Distribution Width 13.6 % (11.8-14.3); White Blood Cell 10.2 10^3/uL (4.4-10.8)
[2022-09-11 05:52] LABS: Albumin 2.2 g/dL (3.4-5.0); BUN/Creatinine Ratio 39.3; Bilirubin, Total 0.8 mg/dL (0.2-1.0); Calcium 8.7 mg/dL (8.5-10.1); Total Protein 5.8 g/dL (6.4-8.2)
[2022-09-11 06:00] LABS: Basophils % (manual) 0 (0.0-2.0); Blast Cells 0; Metamyelocytes % 0; Myelocytes % 0; Promyelocytes % 0; Reactive Lymphocytes 0
[2022-09-11] MEDS: METOCLOPRAMIDE HCL 5MG/ml INJ 2ml VIAL IV SCH ×3 (06:31→22:02)
[2022-09-11] MEDS: ACCU-CHEK COMFORT CURVE STRIP VI SCH ×5 (06:32→23:18)
[2022-09-11] MEDS: InsuLIN REG 1unit/0.01ml Soln (100units/ml) SC SCH ×4 (07:00→23:21)
[2022-09-11 07:32] LABS: Band Neutrophils % (manual) 4; Eosinophils % (manual) 7 (0-7); Lymphocytes % (manual) 10 (10.0-50.0); Monocytes % (manual) 2 (0-12)
[2022-09-11] MEDS: SODIUM CHLOR 0.9% PF (SALINE LOCK) 10ML VIAL/SYR IV SCH ×2 (08:18→22:02)
[2022-09-11] MEDS: hydrALAZINE HCL 20 MG/ML VL IV PRN ×3 (08:36→20:34)
[2022-09-11] MEDS: PANTOPRAZOLE 40 MG/10 ML VIAL INJ IV SCH (08:36)
[2022-09-11] MEDS: ENOXAPARIN SOD 40 MG/0.4 ML SYRINGE SC SCH (08:36)
[2022-09-11] MEDS: LINEZOLID 600MG/300ML 300 ML IV SCH ×2 (08:36→22:02)
[2022-09-11] MEDS ORDERED: FUROSEMIDE 100 MG/10ML VIAL IV ONE (09:30)
[2022-09-11] MEDS ORDERED: FUROSEMIDE 20 MG/2 ML VIAL ONE (09:36)
[2022-09-11] MEDS: amLODIPine BESYLATE 5 MG TAB PO SCH ×2 (10:00→18:26)
[2022-09-11] MEDS ORDERED: LABETALOL HCL 5 MG/ML 4ML SYRINGE IV ONE ×4 (11:00→17:00)
[2022-09-11] MEDS ORDERED: NITROGLYCERIN 2% OINT 1GM PKG TD ONE ×2 (11:45→14:45)
[2022-09-11] MEDS ORDERED: FUROSEMIDE 40 MG/4 ML VIAL IV ONE (12:45)
[2022-09-11] MEDS: DOPamine 1600MCG/ML D5W 250 ML IV SCH (13:00)
[2022-09-11] MEDS: MIDAZOLAM DRIP 50 mg/50mL 50 ML IV SCH (14:16)
[2022-09-11 16:13] LABS: BUN/Creatinine Ratio 29.6; Calcium 9.2 mg/dL (8.5-10.1)
[2022-09-11 16:16] LABS: Potassium 2.9 mmol/L (3.5-5.1)
[2022-09-11] MEDS: POTASSIUM CHL 20MEQ/100ML 100 ML IV SCH ×3 (17:14→20:51)
[2022-09-11] MEDS: MORPHINE SULFATE INJ 2 MG/ml SYRG IV PRN (17:15)
[2022-09-11] MEDS ORDERED: cloNIDine HCL 0.1 MG TAB PO ONE (19:00)
[2022-09-11] MEDS: LABETALOL HCL 5 MG/ML 4ML SYRINGE IV PRN (23:19)
[2022-09-12] VITALS (53 sets, daily range): BP systolic 137–189; BP diastolic 46–85
[2022-09-12] MEDS: CEFEPIME 2 GM in SODIUM CHL 0.9% 50 ML IV SCH ×5 (00:26→21:28)
[2022-09-12] MEDS: hydrALAZINE HCL 20 MG/ML VL IV PRN ×3 (00:56→22:43)
[2022-09-12] MEDS: LABETALOL HCL 5 MG/ML 4ML SYRINGE IV PRN (04:24)
[2022-09-12 05:39] LABS: Hematocrit 31.6 % (41.0-53.0); Hemoglobin 10.9 g/dL (13.5-17.5); Mean Corpuscular Hgb Conc. 34.3 g/dL (32.0-36.0); Mean Corpuscular Volume 87.3 fL (80.0-100.0); Red Blood Cells 3.62 10^6/uL (4.5-5.90); Red Cell Distribution Width 13.5 % (11.8-14.3); White Blood Cell 13.9 10^3/uL (4.4-10.8)
[2022-09-12] MEDS: METOCLOPRAMIDE HCL 5MG/ml INJ 2ml VIAL IV SCH (05:40)
[2022-09-12 05:44] LABS: Basophils % (manual) 0 (0.0-2.0); Blast Cells 0; Metamyelocytes % 0; Myelocytes % 0; Promyelocytes % 0; Reactive Lymphocytes 0
[2022-09-12 05:52] LABS: Albumin 2.4 g/dL (3.4-5.0); Potassium 3.3 mmol/L (3.5-5.1)
[2022-09-12] MEDS: ALBUTEROL SULF 2.5 MG/0.5ML(0.5%) NEB SOLN NEB SCH ×3 (05:55→17:39)
[2022-09-12] MEDS: IPRATROPIUM BROM 0.5 MG/2.5ML INH SOL NEB SCH ×3 (05:55→17:39)
[2022-09-12 05:58] LABS: BUN/Creatinine Ratio 34.1; Bilirubin, Total 1.1 mg/dL (0.2-1.0); Phosphorus 1.4 mg/dL (2.5-4.90); Total Protein 6.9 g/dL (6.4-8.2)
[2022-09-12 06:15] LABS: Band Neutrophils % (manual) 2; Eosinophils % (manual) 1 (0-7); Lymphocytes % (manual) 6 (10.0-50.0); Monocytes % (manual) 2 (0-12)
[2022-09-12] MEDS: ACCU-CHEK COMFORT CURVE STRIP VI SCH ×3 (06:38→22:57)
[2022-09-12] MEDS: InsuLIN REG 1unit/0.01ml Soln (100units/ml) SC SCH ×4 (06:40→22:58)
[2022-09-12] MEDS: DOPamine 1600MCG/ML D5W 250 ML IV SCH (08:03)
[2022-09-12] MEDS: amLODIPine BESYLATE 5 MG TAB PO SCH (09:56)
[2022-09-12] MEDS: SODIUM CHLOR 0.9% PF (SALINE LOCK) 10ML VIAL/SYR IV SCH ×2 (09:58→21:07)
[2022-09-12] MEDS: PANTOPRAZOLE 40 MG/10 ML VIAL INJ IV SCH (09:58)
[2022-09-12] MEDS: ENOXAPARIN SOD 40 MG/0.4 ML SYRINGE SC SCH (09:58)
[2022-09-12] MEDS: LINEZOLID 600MG/300ML 300 ML IV SCH ×2 (09:58→21:07)
[2022-09-12] MEDS: MORPHINE SULFATE INJ 2 MG/ml SYRG IV PRN (09:59)
[2022-09-12] MEDS ORDERED: DEXTROSE (50%) 50ML SYRG IV PRN (12:15)
[2022-09-12] MEDS ORDERED: POTASSIUM PHOSPHATE 44 MEQ in D5W 5% 250 ML IV ONE (12:15)
[2022-09-12] MEDS ORDERED: POTASSIUM CHL 20MEQ/100ML 100 ML IV ONE (12:15)
[2022-09-13] MEDS: ALBUTEROL SULF 2.5 MG/0.5ML(0.5%) NEB SOLN NEB SCH ×4 (00:49→19:14)
[2022-09-13] MEDS: IPRATROPIUM BROM 0.5 MG/2.5ML INH SOL NEB SCH ×4 (00:49→19:14)
[2022-09-13] MEDS: hydrALAZINE HCL 20 MG/ML VL IV PRN ×2 (04:50→21:46)
[2022-09-13 05:00] VITALS: BP 196/68
[2022-09-13] MEDS: CEFEPIME 2 GM in SODIUM CHL 0.9% 50 ML IV SCH ×3 (05:00→21:32)
[2022-09-13] MEDS: ACCU-CHEK COMFORT CURVE STRIP VI SCH ×3 (05:00→19:08)
[2022-09-13] MEDS: InsuLIN REG 1unit/0.01ml Soln (100units/ml) SC SCH ×3 (05:01→19:06)
[2022-09-13 07:18] LABS: Basophils # (auto) 0 10 ^3/uL (0-0.2); Eosinophils # (auto) 0.1 10 ^3/uL (0-0.8); Monocytes # (auto) 0.6 10 ^3/uL (0-1.3); Red Cell Distribution Width 13.4 % (11.8-14.3)
[2022-09-13 07:21] LABS: Basophils % (auto) 0.3 % (0.0-2.0); Eosinophils % (auto) 0.7 % (0.0-7.0); Hematocrit 33.5 % (41.0-53.0); Hemoglobin 11.2 g/dL (13.5-17.5); Lymphocytes # (auto) 0.9 10 ^3/uL (0.4-5.4); Lymphocytes % (auto) 6.8 % (10.0-50.0); Mean Corpuscular Hgb Conc. 33.3 g/dL (32.0-36.0); Mean Corpuscular Volume 87.1 fL (80.0-100.0); Neutrophils % (auto) 87.2 % (37.0-80.0); Red Blood Cells 3.84 10^6/uL (4.5-5.90); White Blood Cell 12.6 10^3/uL (4.4-10.8)
[2022-09-13 07:32] LABS: BUN/Creatinine Ratio 34.4; Potassium 3.4 mmol/L (3.5-5.1)
[2022-09-13 08:00] VITALS: BP 171/62
[2022-09-13] MEDS ORDERED: POTASSIUM EFFERVESENT TAB 25 MEQ PO ONE (10:30)
[2022-09-13] MEDS: SODIUM CHLOR 0.9% PF (SALINE LOCK) 10ML VIAL/SYR IV SCH ×2 (11:34→21:32)
[2022-09-13] MEDS: PANTOPRAZOLE 40 MG/10 ML VIAL INJ IV SCH (11:34)
[2022-09-13] MEDS: LINEZOLID 600MG/300ML 300 ML IV SCH ×2 (11:34→21:32)
[2022-09-13] MEDS: FUROSEMIDE 20 MG TAB PO SCH (11:36)
[2022-09-13] MEDS: amLODIPine BESYLATE 5 MG TAB PO SCH (11:37)
[2022-09-13] MEDS: ENOXAPARIN SOD 40 MG/0.4 ML SYRINGE SC SCH (11:37)
[2022-09-13 12:38] VITALS: BP 137/57
[2022-09-13 16:39] VITALS: BP 173/68
[2022-09-13 22:00] VITALS: BP 161/67
[2022-09-14] MEDS: ACCU-CHEK COMFORT CURVE STRIP VI SCH ×4 (00:04→17:28)
[2022-09-14] MEDS: InsuLIN REG 1unit/0.01ml Soln (100units/ml) SC SCH ×4 (00:06→18:11)
[2022-09-14] MEDS: IPRATROPIUM BROM 0.5 MG/2.5ML INH SOL NEB SCH ×4 (00:36→19:21)
[2022-09-14] MEDS: ALBUTEROL SULF 2.5 MG/0.5ML(0.5%) NEB SOLN NEB SCH ×4 (00:36→19:21)
[2022-09-14 01:00] VITALS: BP 152/52
[2022-09-14] MEDS: CEFEPIME 2 GM in SODIUM CHL 0.9% 50 ML IV SCH ×3 (05:33→21:36)
[2022-09-14 05:34] VITALS: BP 158/77
[2022-09-14] MEDS: hydrALAZINE HCL 20 MG/ML VL IV PRN (06:54)
[2022-09-14] MEDS: LINEZOLID 600MG/300ML 300 ML IV SCH ×2 (08:58→21:36)
[2022-09-14] MEDS: amLODIPine BESYLATE 5 MG TAB PO SCH (08:59)
[2022-09-14 09:00] VITALS: BP 160/75
[2022-09-14] MEDS: FUROSEMIDE 20 MG TAB PO SCH (09:00)
[2022-09-14] MEDS: ENOXAPARIN SOD 40 MG/0.4 ML SYRINGE SC SCH (09:01)
[2022-09-14] MEDS: SODIUM CHLOR 0.9% PF (SALINE LOCK) 10ML VIAL/SYR IV SCH ×2 (09:01→21:36)
[2022-09-14] MEDS: PANTOPRAZOLE 40 MG/10 ML VIAL INJ IV SCH (09:01)
[2022-09-14] MEDS: LABETALOL HCL 5 MG/ML 4ML SYRINGE IV PRN (09:05)
[2022-09-14 13:00] VITALS: BP_SYST 190; BP_SYST 196; BP_DIAS 83
[2022-09-14 17:00] VITALS: BP 142/58
[2022-09-14 21:35] VITALS: BP 139/74
[2022-09-15] VITALS (7 sets, daily range): BP systolic 130–198; BP diastolic 60–88
[2022-09-15] MEDS: InsuLIN REG 1unit/0.01ml Soln (100units/ml) SC SCH ×4 (00:04→17:54)
[2022-09-15] MEDS: ACCU-CHEK COMFORT CURVE STRIP VI SCH ×4 (00:05→17:55)
[2022-09-15] MEDS: ALBUTEROL SULF 2.5 MG/0.5ML(0.5%) NEB SOLN NEB SCH ×4 (00:18→18:49)
[2022-09-15] MEDS: IPRATROPIUM BROM 0.5 MG/2.5ML INH SOL NEB SCH ×4 (00:18→18:49)
[2022-09-15] MEDS: CEFEPIME 2 GM in SODIUM CHL 0.9% 50 ML IV SCH ×3 (05:28→22:18)
[2022-09-15] MEDS: LINEZOLID 600MG/300ML 300 ML IV SCH (09:32)
[2022-09-15] MEDS: PANTOPRAZOLE 40 MG/10 ML VIAL INJ IV SCH (09:32)
[2022-09-15] MEDS: FUROSEMIDE 20 MG TAB PO SCH (09:33)
[2022-09-15] MEDS: SODIUM CHLOR 0.9% PF (SALINE LOCK) 10ML VIAL/SYR IV SCH ×2 (09:33→22:19)
[2022-09-15] MEDS: amLODIPine BESYLATE 5 MG TAB PO SCH (09:33)
[2022-09-15] MEDS: ENOXAPARIN SOD 40 MG/0.4 ML SYRINGE SC SCH (09:34)
[2022-09-15] MEDS: hydrALAZINE HCL 20 MG/ML VL IV PRN (10:48)
[2022-09-15] MEDS ORDERED: hydrALAZINE HCL 25 MG TAB PO ONE (13:15)
[2022-09-15] MEDS ORDERED: LOSARTAN POTASSIUM 50 MG TAB PO ONE (13:15)
[2022-09-15] MEDS: hydrALAZINE HCL 25 MG TAB PO SCH (22:17)
[2022-09-16] MEDS: IPRATROPIUM BROM 0.5 MG/2.5ML INH SOL NEB SCH ×4 (00:14→19:22)
[2022-09-16] MEDS: ALBUTEROL SULF 2.5 MG/0.5ML(0.5%) NEB SOLN NEB SCH ×4 (00:14→19:22)
[2022-09-16] MEDS: ACCU-CHEK COMFORT CURVE STRIP VI SCH ×5 (01:21→23:55)
[2022-09-16] MEDS: InsuLIN REG 1unit/0.01ml Soln (100units/ml) SC SCH ×5 (01:23→23:56)
[2022-09-16 05:00] VITALS: BP 172/89
[2022-09-16] MEDS: hydrALAZINE HCL 20 MG/ML VL IV PRN ×2 (05:00→16:25)
[2022-09-16] MEDS: CEFEPIME 2 GM in SODIUM CHL 0.9% 50 ML IV SCH (07:03)
[2022-09-16 07:19] LABS: Albumin 2.7 g/dL (3.4-5.0); Calcium 8.5 mg/dL (8.5-10.1); Potassium 3.2 mmol/L (3.5-5.1)
[2022-09-16 07:21] LABS: Basophils # (auto) 0.1 10 ^3/uL (0-0.2); Basophils % (auto) 0.6 % (0.0-2.0); Eosinophils # (auto) 0.2 10 ^3/uL (0-0.8); Nucleated Red Blood Cells % 0.1 %
[2022-09-16 07:23] LABS: Eosinophils % (auto) 1.9 % (0.0-7.0); Hematocrit 30.6 % (41.0-53.0); Hemoglobin 10.7 g/dL (13.5-17.5); Lymphocytes % (auto) 9.6 % (10.0-50.0); Mean Corpuscular Hgb Conc. 34.9 g/dL (32.0-36.0); Mean Corpuscular Volume 85.9 fL (80.0-100.0); Monocytes # (auto) 0.8 10 ^3/uL (0-1.3); Monocytes % (auto) 7.1 % (0.0-12.0); Neutrophils # (auto) 8.6 10 ^3/uL (1.6-8.6); Neutrophils % (auto) 80.8 % (37.0-80.0); Red Blood Cells 3.56 10^6/uL (4.5-5.90); Red Cell Distribution Width 13.5 % (11.8-14.3); White Blood Cell 10.7 10^3/uL (4.4-10.8)
[2022-09-16 07:27] LABS: Bilirubin, Total 2.2 mg/dL (0.2-1.0); Total Protein 6.3 g/dL (6.4-8.2)
[2022-09-16 08:43] VITALS: BP 184/70
[2022-09-16] MEDS ORDERED: LOSARTAN POTASSIUM 50 MG TAB PO SCH (10:00)
[2022-09-16] MEDS: PANTOPRAZOLE 40 MG/10 ML VIAL INJ IV SCH (10:15)
[2022-09-16] MEDS: SODIUM CHLOR 0.9% PF (SALINE LOCK) 10ML VIAL/SYR IV SCH ×2 (10:15→23:02)
[2022-09-16] MEDS: SERTRALINE HCL 50 MG TAB PO SCH (10:16)
[2022-09-16] MEDS: FUROSEMIDE 20 MG TAB PO SCH (10:16)
[2022-09-16] MEDS: amLODIPine BESYLATE 5 MG TAB PO SCH (10:16)
[2022-09-16] MEDS: hydrALAZINE HCL 25 MG TAB PO SCH ×2 (10:17→23:01)
[2022-09-16] MEDS: ENOXAPARIN SOD 40 MG/0.4 ML SYRINGE SC SCH (10:17)
[2022-09-16] MEDS ORDERED: LOSARTAN POTASSIUM 50 MG TAB PO ONE (13:00)
[2022-09-16] MEDS ORDERED: POTASSIUM CHL 20 Meq TABLET PO ONE (13:00)
[2022-09-16] MEDS ORDERED: hydrALAZINE HCL 25 MG TAB PO ONE (13:00)
[2022-09-16 13:04] VITALS: BP 174/62
[2022-09-16] MEDS: levoFLOXacin 500 MG TAB PO SCH (13:07)
[2022-09-16 16:26] VITALS: BP 191/72
[2022-09-16] MEDS: LABETALOL HCL 5 MG/ML 4ML SYRINGE IV PRN (17:58)
[2022-09-16] MEDS ORDERED: TAMSULOSIN HYDROCHLORIDE 0.4 MG CAP PO SCH (18:00)
[2022-09-16 22:45] VITALS: BP 144/57
[2022-09-17] MEDS: ACETAMINOPHEN 325 MG TAB PO PRN ×2 (00:04→12:44)
[2022-09-17] MEDS: ALBUTEROL SULF 2.5 MG/0.5ML(0.5%) NEB SOLN NEB SCH ×3 (00:57→12:55)
[2022-09-17] MEDS: IPRATROPIUM BROM 0.5 MG/2.5ML INH SOL NEB SCH ×3 (00:58→12:55)
[2022-09-17 05:18] VITALS: BP 150/71
[2022-09-17 06:28] LABS: BUN/Creatinine Ratio 17.8; Calcium 8.5 mg/dL (8.5-10.1); Magnesium 1.8 mg/dL (1.6-2.6)
[2022-09-17] MEDS: InsuLIN REG 1unit/0.01ml Soln (100units/ml) SC SCH ×2 (06:28→12:05)
[2022-09-17] MEDS: ACCU-CHEK COMFORT CURVE STRIP VI SCH ×2 (06:47→12:02)
[2022-09-17 08:45] VITALS: BP 197/82
[2022-09-17] MEDS: FUROSEMIDE 20 MG TAB PO SCH (09:22)
[2022-09-17] MEDS: levoFLOXacin 500 MG TAB PO SCH (09:22)
[2022-09-17] MEDS: SERTRALINE HCL 50 MG TAB PO SCH (09:22)
[2022-09-17] MEDS: hydrALAZINE HCL 25 MG TAB PO SCH (09:23)
[2022-09-17] MEDS: SODIUM CHLOR 0.9% PF (SALINE LOCK) 10ML VIAL/SYR IV SCH (09:24)
[2022-09-17] MEDS: amLODIPine BESYLATE 5 MG TAB PO SCH (09:24)
[2022-09-17] MEDS ORDERED: PANTOPRAZOLE 40 MG TAB PO SCH (10:00)
[2022-09-17] MEDS ORDERED: LOSARTAN POTASSIUM 50 MG TAB PO SCH (10:00)
[2022-09-17] MEDS ORDERED: FUROSEMIDE 20 MG/2 ML VIAL IV SCH (10:00)
[2022-09-17 12:22] VITALS: BP 126/75
[2022-09-17] MEDS ORDERED: LEVO-28 PO (12:27)
[2022-09-17] MEDS ORDERED: HYDR25TA87 PO (12:27)
[2022-09-17] MEDS ORDERED: FUR20T PO (12:27)
[2022-09-17 13:14] VITALS: BP 197/82
[2022-09-17 16:53] VITALS: BP 147/80
== END 2022-09-17 18:23 | disposition home health service (06) | DRG 207 ==
LOC: EDBD 07:16 → ER 07:16 → TELE 15:40 → TELE-EAST 21:27 → ICU CENTRL 09-01 15:00 → DOU IN ICU 09-02 00:21 → ICU CENTRL 09-03 16:50 → TELE-WESTW 09-12 15:11
PROVIDERS: ADMIT Registered Nurse; ATTEND Internal Medicine
PROC: 5A09457 Assistance with Respiratory Ventilation, 24-96 Consecutive Hours, Continuous Positive Airway Pressure (ICD-10-PCS; 2022-09-01)
PROC: 0BH17EZ Insertion of Endotracheal Airway into Trachea, Via Natural or Artificial Opening (ICD-10-PCS; principal; 2022-09-03)
PROC: 5A1955Z Respiratory Ventilation, Greater than 96 Consecutive Hours (ICD-10-PCS; 2022-09-03)
PROC: 02HV33Z Insertion of Infusion Device into Superior Vena Cava, Percutaneous Approach (ICD-10-PCS; 2022-09-04)
PROC: B548ZZA Ultrasonography of Superior Vena Cava, Guidance (ICD-10-PCS; 2022-09-04)
PROC: 0B9D8ZX Drainage of Right Middle Lung Lobe, Via Natural or Artificial Opening Endoscopic, Diagnostic (ICD-10-PCS; 2022-09-04)
PROC: 0B968ZZ Drainage of Right Lower Lobe Bronchus, Via Natural or Artificial Opening Endoscopic (ICD-10-PCS; 2022-09-04)
PROC: 0B948ZZ Drainage of Right Upper Lobe Bronchus, Via Natural or Artificial Opening Endoscopic (ICD-10-PCS; 2022-09-04)
PROC: 5A09357 Assistance with Respiratory Ventilation, Less than 24 Consecutive Hours, Continuous Positive Airway Pressure (ICD-10-PCS; 2022-09-11)
PROC: 5A09357 Assistance with Respiratory Ventilation, Less than 24 Consecutive Hours, Continuous Positive Airway Pressure (ICD-10-PCS; 2022-09-12)
PROC: 5A09357 Assistance with Respiratory Ventilation, Less than 24 Consecutive Hours, Continuous Positive Airway Pressure (ICD-10-PCS; 2022-09-13)
PROC: 5A09357 Assistance with Respiratory Ventilation, Less than 24 Consecutive Hours, Continuous Positive Airway Pressure (ICD-10-PCS; 2022-09-14)
DX: J96.01 Acute respiratory failure with hypoxia (principal); I50.31 Acute diastolic (congestive) heart failure; N17.0 Acute kidney failure with tubular necrosis; J18.9 Pneumonia, unspecified organism; S22.43XA Multiple fractures of ribs, bilateral, initial encounter for closed fracture; J98.11 Atelectasis; J91.8 Pleural effusion in other conditions classified elsewhere; E11.9 Type 2 diabetes mellitus without complications; I10 Essential (primary) hypertension; Z20.822 Contact with and (suspected) exposure to COVID-19; E66.9 Obesity, unspecified; Z68.33 Body mass index [BMI] 33.0-33.9, adult; E78.5 Hyperlipidemia, unspecified; F03.90 Unspecified dementia, unspecified severity, without behavioral disturbance, psychotic disturbance, mood disturbance, and anxiety; I11.0 Hypertensive heart disease with heart failure; I25.10 Atherosclerotic heart disease of native coronary artery without angina pectoris; M47.812 Spondylosis without myelopathy or radiculopathy, cervical region; N40.1 Benign prostatic hyperplasia with lower urinary tract symptoms; S09.90XA Unspecified injury of head, initial encounter; S39.91XA Unspecified injury of abdomen, initial encounter; W11.XXXA Fall on and from ladder, initial encounter; Y93.89 Activity, other specified; Y99.8 Other external cause status; Z86.73 Personal history of transient ischemic attack (TIA), and cerebral infarction without residual deficits; Z79.899 Other long term (current) drug therapy; Y92.098 Other place in other non-institutional residence as the place of occurrence of the external cause
CPT/HCPCS: 31624; 36415; 36569; 36600; 70450; 71045; 71260; 72125; 72132; 74177; 76775; 80048; 80053; 80061; 81001; 82306; 82570; 82805; 82962; 83036; 83605; 83735; 83880; 83970; 84100; 84156; 84300; 84443; 84484; 85007; 85025; 85027; 85379; 85610; 85730; 87040; 87070; 87077; 87081; 87086; 87186; 87205; 87426; 87804; 93005; 93306; 94002; 94003; 94640; 94660; 96365; 96375; 97110; 97116; 97163; 97530; 99291; C9113; G0378; J0171; J0330; J0696; J1815; J2250; J2405; J2543; J2704; J3480; J3490; J7060

== ENCOUNTER 2023-03-02 08:27 | Day surgery (SDC) | payer MEDICARE, MEDICAID ==
[2023-03-02] VITALS (11 sets, daily range): BP systolic 121–159; BP diastolic 56–106
[~2023-03-02] VITALS: Ht 175.3 cm; Wt 93.9 kg
[~2023-03-02 08:27] MED LIST: AMLO-496 PO; ATOR40TA52 PO; CLOP75TA28 PO; FINA5TAB4 PO; LOSA-39 PO; MEMA1TAB3 PO; METF-372 PO; SERT-160 PO; SITA100T7 PO; TAMS0.4C36 PO; [UNRECOGNIZED DRUG - CODE] PO
[2023-03-02] MEDS ORDERED: LIDOCAINE 2%HCL (LOCAL ANESTH.) INJ 10ml MDV ONE (08:51)
[2023-03-02] MEDS ORDERED: IODIXANOL 320MG/ML 100ML BTL IV ONE (08:51)
[2023-03-02] MEDS ORDERED: ANGIOMAX 250 MG VIAL IV ONE (09:14)
[2023-03-02] MEDS ORDERED: HEPARIN SODIUM (PORCINE) 5000 UNITS/ML 1ML VIAL ONE (09:14)
[2023-03-02] MEDS ORDERED: VERAPAMIL 2.5MG/ML INJ 2ML VIAL IV ONE (09:15)
[2023-03-02] MEDS ORDERED: MIDAZOLAM HCL 2MG/2ML 2ml VIAL (1mg/ml) ONE (09:15)
[2023-03-02] MEDS ORDERED: fentaNYL CITRATE 100 MCG/2 ML VL ONE (09:15)
[2023-03-02] MEDS ORDERED: SODIUM CHL 0.9% 50 ML ONE (09:16)
[2023-03-02] MEDS ORDERED: LIDOCAINE 2%HCL (LOCAL ANESTH.) INJ 20ML MDV ONE ×2 (09:17→09:38)
[2023-03-02] MEDS ORDERED: ATROPINE SULF 1 MG/10ml SYR ONE (09:53)
[2023-03-02] MEDS ORDERED: CLOPIDOGREL 300 MG TAB ONE (10:08)
[2023-03-02] MEDS ORDERED: ASPirin 81 mg TAB ONE (10:13)
== END 2023-03-02 15:55 | disposition home or self-care (01) ==
LOC: CATH 08:27
PROVIDERS: ATTEND Internal Medicine
DX: I25.110 Atherosclerotic heart disease of native coronary artery with unstable angina pectoris (principal); I10 Essential (primary) hypertension; E11.9 Type 2 diabetes mellitus without complications; Z79.899 Other long term (current) drug therapy; Z79.84 Long term (current) use of oral hypoglycemic drugs; Z86.73 Personal history of transient ischemic attack (TIA), and cerebral infarction without residual deficits
CPT/HCPCS: 93005; 93458; C1725; C1769; C1874; C1887; C1894; C9600; J0583; J1644; J2001; J2250; J3010; Q9967; 99152; 99153

== ENCOUNTER 2023-05-17 06:41 | Emergency (ER) | payer MEDICARE, MEDICAID ==
[~2023-05-17] VITALS: Ht 175.3 cm; Wt 90.6 kg
[~2023-05-17 06:41] MED LIST changes: -AMLO-496 PO; +AMLO1TAB23 PO; -LOSA-39 PO; +LOSA100T58 PO
[2023-05-17 07:25] VITALS: BP 145/55; PULSE 63; RESP 15; TEMP 98.1; O2SAT 100
== END 2023-05-17 07:50 | disposition home or self-care (01) ==
LOC: ER 06:41
DX: T85.838A Hemorrhage due to other internal prosthetic devices, implants and grafts, initial encounter (principal); E11.9 Type 2 diabetes mellitus without complications; E78.5 Hyperlipidemia, unspecified; I10 Essential (primary) hypertension; Z86.73 Personal history of transient ischemic attack (TIA), and cerebral infarction without residual deficits; Z88.8 Allergy status to other drugs, medicaments and biological substances

== ENCOUNTER 2023-12-15 09:15 | Emergency (ER) | payer MEDICARE, MEDICAID ==
[~2023-12-15] VITALS: Ht 175.3 cm; Wt 90.7 kg
[2023-12-15 09:31] VITALS: TEMP 97.6
[2023-12-15 09:47] VITALS: BP 180/59; PULSE 65; RESP 20; O2SAT 100
[2023-12-15] MEDS: LIDOCAINE W/ EPINEPHRINE 1% 20ML VIAL SC ONE (10:27)
== END 2023-12-15 11:12 | disposition home or self-care (01) ==
LOC: ER 09:15
DX: L91.8 Other hypertrophic disorders of the skin (principal); E11.9 Type 2 diabetes mellitus without complications; E78.5 Hyperlipidemia, unspecified; I10 Essential (primary) hypertension; Z86.73 Personal history of transient ischemic attack (TIA), and cerebral infarction without residual deficits; Z88.6 Allergy status to analgesic agent
CPT/HCPCS: 96372